=== PATIENT | female | born 2000 | race Caucasian/White ===

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

== ENCOUNTER 2020-12-04 14:26 | Emergency (ER) | payer MEDICARE, OTHER ==
[~2020-12-04] VITALS: Ht 165.1 cm; Wt 54.5 kg
[2020-12-04 14:35] VITALS: TEMP 98.1
[2020-12-04 15:02] LABS: COLLECTION METHOD CLEAN CATCH
[2020-12-04 15:13] LABS: BASO % 0.4 % (0.0-2.0); EOS # 0.3 (0.0-0.7); EOS % 2.4 % (0-4.0); GRAN # 6.8 (1.4-6.5); HEMATOCRIT 41.2 % (35.0-45.0); HEMOGLOBIN 13.2 g/dl (12.0-15.0); LYMPH # 2.5 (1.2-3.4); LYMPH % 23.7 % (20.0-51.0); MEAN CELL VOLUME 91 fl (80.0-95.0); MEAN CORPUSCULAR HEMOGLOBIN 29 pg (26.0-32.0); MEAN CORPUSCULAR HGB CONC 32 g/dl (33.0-37.0); MEAN PLATELET VOLUME 9.8 fl (7.4-10.4); MONO # 0.7 (0.1-0.6); MONO % 7.2 % (1.7-9.3); PLATELET COUNT 289 K/mm3 (130-400); RED BLOOD COUNT 4.54 M/mm3 (4.10-5.30); REDCELL DISTRIBUTION WIDTH-CV 12.6 % (11.5-14.5)
[2020-12-04 15:16] LABS: PH 6 (5-8); SQUAMOUS EPITHELIAL None Seen /hpf; URINE APPEARANCE Clear; URINE BACTERIA None Seen /hpf; URINE BILIRUBIN Negative (NEGATIVE); URINE BLOOD Negative (NEGATIVE); URINE COLOR Yellow; URINE GLUCOSE Negative (NEGATIVE); URINE KETONE Negative (NEGATIVE); URINE LEUKOCYTE ESTERASE Negative (NEGATIVE); URINE NITRATE Negative (NEGATIVE); URINE PROTEIN(semi-quant) Negative (NEGATIVE); URINE RBC None Seen /hpf; URINE UROBILINOGEN Negative (NEGATIVE)
[2020-12-04 15:22] LABS: ALANINE AMINOTRANSFERASE 14 U/L (4-34); ALBUMIN 4.2 gm/dL (3.5-5.0); ALKALINE PHOSPHATASE 54 U/L (50-136); ANION GAP 9 mmol/L (7-16); AST,SGOT 21 U/L (15-37); BILIRUBIN,TOTAL < 0.1 mg/dL (0.0-1.0); BLOOD UREA NITROGEN 16 mg/dL (7-17); CALCIUM 9.1 mg/dL (8.4-10.2); CARBON DIOXIDE 26 mmol/L (22-30); CHLORIDE 103 mmol/L (98-107); CREATININE, serum 0.72 (0.52-1.25); GLUCOSE 82 mg/dL (74-106); POTASSIUM 3.8 mmol/L (3.4-5.0); SODIUM 138 mmol/L (137-145); TOTAL PROTEIN 7.7 gm/dL (6.4-8.2)
[2020-12-04 15:29] LABS: ACETAMINOPHEN < 10 ug/mL (10-30); ALCOHOL(ethanol),MEDICAL < 10 mg/dL; SALICYLATE < 1.0 mg/dL
[2020-12-04 15:37] LABS: TRICYCLIC ANTIDEPRESS URINE NEGATIVE
[2020-12-04 15:52] LABS: TSH w REFLEX 0.964 uIU/mL (0.465-4.680)
[2020-12-04 17:31] VITALS: BP 126/80; PULSE 78
== END 2020-12-04 17:36 | disposition home or self-care (01) ==
LOC: COL.ER 14:26
PROVIDERS: Nurse Practitioner Primary Care
DX: F22 Delusional disorders (principal); Z88.1 Allergy status to other antibiotic agents

== ENCOUNTER → 2021-06-18 | Outpatient (CLI) | payer MEDICARE | LOC: MC.RAD 10:00 | DX: N63.32 Unspecified lump in axillary tail of the left breast (principal) ==

== ENCOUNTER 2022-10-31 18:21 | Outpatient (CLI) | payer MEDICARE ==
[~2022-10-31] VITALS: Ht 165.1 cm; Wt 79.5 kg
--- NOTE | 2022-10-31 18:30 | NUR ---
To unit via wheelchair for assessment of ?SROM, accompanied by family. oriented to room ,monitor, plan of care. ROM+ collected and sent to lab.
[2022-10-31 18:35] VITALS: BP 117/72; PULSE 84; TEMP 97.4
[2022-10-31] MEDS ORDERED: PRENATAL TABLET PO (18:53)
[2022-10-31] MEDS ORDERED: FERRO-TIME325 MG PO (18:54)
[2022-10-31] MEDS ORDERED: HAIRSKINNAILS PO (18:55)
[2022-10-31 19:30] VITALS: PULSE 84
--- NOTE | 2022-10-31 19:45 | NUR ---
ROM + RESULTS NEGATIVE. Pt off monitor. Will finish eating and discharge to home.
--- NOTE | 2022-10-31 20:00 | NUR ---
discharge instructions reviewe with pt and family . Pt denies taking Acyclovir or Valtrex, stating "I've never heard of it" Acyclovir on pt's med list form office. Pt instructed to call office in amand ask for a Medication clarification. Verbalizes understanding. Ambulatory of unit with extended family
== END 2022-10-31 20:00 | disposition home or self-care (01) ==
LOC: LDRO 18:21 → LDR 18:45 → LDRO 20:00
DX: O42.92 Full-term premature rupture of membranes, unspecified as to length of time between rupture and onset of labor (principal); Z3A.37 37 weeks gestation of pregnancy
CPT/HCPCS: OP

== ENCOUNTER 2022-11-16 05:32 | Inpatient (IN) | payer MEDICARE ==
[2022-11-16] VITALS (21 sets, daily range): BP systolic 95–158; BP diastolic 56–86; PULSE 76–121; TEMP 97.6–97.9
[~2022-11-16] VITALS: Ht 165.1 cm; Wt 86.4 kg
[~2022-11-16 05:32] MED LIST changes: +FERRO-TIME325 MG PO; +HAIRSKINNAILS PO; +PRENATAL TABLET PO
--- NOTE | 2022-11-16 05:35 | NUR ---
PT TO UNIT VIA WHEELCHAIR. BREATHING HEAVILY WITH CONTRACTIONS, UNCONTROLLED, MOANING AND CRYING OUT THAT SHE HURTS. STATES CTX STARTED AT APPROXIMATELY 0300, DENIES LOF OR VB. SVE OF -/-3. EFMX2 APPLIED, VS OBTAINED.
--- NOTE | 2022-11-16 06:49 | NUR ---
0619 - Dr. Valencia to bedside. Verbal discussion with pt regarding HSV. Pt states she is having outbreak. Dr. Valencia asks about outbreak starting Oct 10 as noted in prental records, pt states "I don't remember, I sleep a lot". Vaginal exam by Dr. Valencia, per physician, does not see lesions, but informs pt that if outbreak is suspected, will need to be done. Pt verbally agrees. Per Dr. Valencia, cervix unchanged at this time, will monitor pt for another hour and recheck.
--- NOTE | 2022-11-16 07:11 | NUR ---
0705 - Dr. Drummond to bedside. SVE per provider 2-3/bulging bag/bloody show. Discussion at this time with pt and family that will need to be done with possibility of HSV outbreak. Pt verbalizes understanding and verbally agrees.
[2022-11-16] MEDS ORDERED: VALTREX1 GM PO (07:24)
[2022-11-16 08:07] LABS: BASO % 0.2 % (0.0-2.0); EOS # 0.2 K/mm3 (0.0-0.7); GRAN # 15.3 K/mm3 (1.4-6.5); HEMOGLOBIN 12.4 g/dl (12.5-16.0); LYMPH # 2.6 K/mm3 (1.2-3.4); LYMPH % 13.4 % (20.0-51.0); MEAN CELL VOLUME 87 fl (80.0-100.0); MEAN CORPUSCULAR HEMOGLOBIN 29 pg (27-31); MEAN CORPUSCULAR HGB CONC 34 g/dl (33.0-37.0); MEAN PLATELET VOLUME 11.5 fl (7.4-10.4); MONO # 1.3 K/mm3 (0.1-0.6); MONO % 6.8 % (1.7-9.3); PLATELET COUNT 224 K/mm3 (130-400); RED BLOOD COUNT 4.25 M/mm3 (4.10-5.30); REDCELL DISTRIBUTION WIDTH-CV 15.8 % (11.5-14.5)
[2022-11-16 08:17] LABS: TRICYCLIC ANTIDEPRESS URINE NEGATIVE
[2022-11-16 08:23] LABS: ALBUMIN 3.2 gm/dL (3.5-5.0); BILIRUBIN,TOTAL 0.3 mg/dL (0.2-1.2); CALCIUM 9.7 mg/dL (8.4-10.2); CREATININE, serum 0.66 mg/dL (0.57-1.11); POTASSIUM 3.7 mmol/L (3.5-4.5); TOTAL PROTEIN 7.2 gm/dL (6.2-8.1)
--- NOTE | 2022-11-16 11:29 | NUR ---
0720 - IV started in left hand, labs drawn and LR started per protocol. 0745 - Pubic area shaved, chlorihexadine scrub done across incisional site. 08 - Consents discussed and signed. 08 - Pt taken off monitors and taken to OR via bed for .
--- NOTE | 2022-11-16 16:00 | NUR ---
Rivera catheter removed while pt lying in bed, SCDs removed. Pt up to sitting at bedside with assistance of 2. Pt then up to standing with assistance of 1, and ambulates with standby to bathroom. Pt sits on toilet, gown changed, pericare done. New gown, panties and pad placed. Binder placed at this time. Pt then ambulates independently back to bed, tries to sit, then requests binder to be removed. Binder removed, pt sits and repositions self in bed. Pt denies needs at this time.
[2022-11-17] VITALS: BP 125/81; PULSE 94; TEMP 97.8
[2022-11-17 04:15] VITALS: BP 119/76; PULSE 91; TEMP 98.1
[2022-11-17 09:46] VITALS: BP 117/74; PULSE 90; TEMP 97.8
--- NOTE | 2022-11-17 13:45 | NUR ---
Pt up to bathroom, voided, then in to shower. Bandage removed with assistance, incision edges well approximated, no swelling/bruising noted, slight oozing from center. Following shower, pt assisted into new panties, pad, and gown. Pt then ambulated down de la cruz while pushing in crib. Pt tolerated well, no needs at this time.
--- NOTE | 2022-11-17 15:45 | NUR ---
director pharmacy services to pt room, pt friend and father at bedside.
[2022-11-17 16:53] VITALS: BP 103/60; PULSE 78
--- NOTE | 2022-11-17 19:00 | NUR ---
PT UP TO BATHROOM WITH STAND-BY ASSIST. WHILE SITTING ON THE TOILLET, PT BEGAN LOOKING OVER HER SHOULDER. THIS NURSE ASKED IF PATIENT WAS DOING OK. 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 THIS ASKED IF THERE WAS ANYTHING I COULD DO TO ASSIST. PT STATES SHE IS OK. PERICARE PERFORMED AND PT ASSISTED BACK TO BED.
[2022-11-17 19:41] VITALS: BP 110/62; PULSE 77; TEMP 98
[2022-11-18 08:29] VITALS: BP 106/65; PULSE 76; TEMP 97.7
--- NOTE | 2022-11-18 09:23 | NUR ---
Initial visit; Mom and Grandma thanked Tax Consultant for offering prayer and Congratulations for the of their baby boy. Tax Consultant will keep mother and baby in her prayers.
--- NOTE | 2022-11-18 09:36 | NUR ---
0845 - KPad provided to pt per her request for heating pad. 0933 - Finance notified of pt request for visit.
[2022-11-18 16:36] VITALS: BP 101/58; PULSE 84; TEMP 97.8
[2022-11-18 19:30] VITALS: BP 113/69; PULSE 79; TEMP 97.9
--- NOTE | 2022-11-19 05:50 | NUR ---
Throughout shift, patient did not ask this nurse anything about baby or baby cares. Was seen pumping around 1900 and was in the nursery briefly in the 4 oclock hour. Pt slept comfortably through majority of shift. This nurse concerned about patients mental health and ability/desire to care for baby once discharged.
[2022-11-19 08:31] VITALS: BP 113/65; PULSE 90; TEMP 97.8
--- NOTE | 2022-11-19 09:53 | NUR ---
0830 MOTHER RESTING IN BED WITH INFANT AT BREAST. NURSERY NURSEALVARO ASSISTING FEEDING. MOTHER IN A GOOD MOOD ANSWERING QUESTIONS ASKED OF HER. STATES A LITTLE PAIN AND WOULD LIKE TO TAKE A OXYCODONE NOW SO HER "PAIN DOESN'T GET OUT OF CONTROL." SCHEDULED MOTRIN DUE AT 1130. MOTHER STATES BLEEDING HAS SLOWED DOWN. MOTHER EDUCATED ON HOW TO CARE FOR UMBILICAL CORD AND EXPECTATIONS TO SEE FROM NOW UNTIL IT HEALS AND FALLS OFF. MOTHER VERBALLY UNDERSTANDS HOW TO CLEAN UMBILICAL CORD. XOCHILT PADS, MESH UNDERWEAR, CLEAN TOWELS SUPPLIED TO MOTHERS BATHROOM AT THIS TIME. CALL LIGHT IN PLACE. MOTHER IN BED HOLDING ON CHEST. MOTHERHUSSEIN AT BEDSIDE.
--- NOTE | 2022-11-19 10:03 | NUR ---
0730 Patients mother comes to nurses station stating the patient needs help getting baby to breast. This nurse to room to help with . Patient is crying because baby is crying. states "i cant get him to feed". talk with patient that this is normal for baby to get upset like this when sometimes. This nurse helps with attempting to latch baby at this time. baby very fussy and refusing to latch. Patient very upset and tearful. Patient asks to just feed baby a bottle at this time. Danitza Rn to room for a blood sugar check on baby.
--- NOTE | 2022-11-19 10:36 | NUR ---
AT about 0950 pt uses call light and asks for a bottle for baby. This LC goes to pt room to assess as baby just fed about 1.5 hours ago. When LC enters room baby is content, LC asks pt to describe what behaviour baby was showing that made her think baby was hungry. She states his mouth was rooting, that she gave him the pacifier for a little bit but she thought he might be hungry. LC assists with repositioning baby to a burping position, pt pats baby on the back appropriatly. No feeding cues observed. Pt gets teary and lip quivers as LC repositions baby. LC asks if pt okay, she states it is scary not knowing what the baby needs. Reviewed reasons why babies get fussy, including hunger, discomfort, gas, dirty diapers. LC discusses getting parenting books to help her understand newborns, such as What to Expect the First Year. PT goes on to share about some of her history with medications for depression and schizophrenia, that she didn't feel good on them and that she felt she was doing okay at this time. She shares she has not heard strong voices since the baby was born, and what she has heard she was able to talk over them so they did not bother her. LC asks about her support outside the hospital, she states she will stay with her mother and father for awhile, while her own place is being repaired, that it has a broken pipe and there was a spot on the floor that was soft and she was afraid she would fall through and a leak in the roof. She states her brother and friend Brady were going to work on it. asks about professional support for her schizophrenia, she has had a few counselors but does not seem to have a current one. encourages pt to get established with a professional, especially since PP is a very emotional time. Pt seems to feel better, asks for ice cream as LC leave room.
--- NOTE | 2022-11-19 13:03 | NUR ---
1100 THIS RN GOES INTO PATIENT ROOM TO GIVE SCHEDULED MOTRIN. NURSERY NURSE, ALVARO, AT BEDSIDE CHECKING INFANT BLOOD SUGAR BEFORE TO FEED. INFANT IS CRYING, ACTING HUNGRY. MOTHER PLANS TO START ON THE LEFT SIDE. MOTHER AND NURSERY NURSE ATTEMPTING TO LATCH TO LEFT BREAST IN CROSS CRADLE. INFANT CRYING VIGOROUSLY, MOTHER APPEARS TO GET FRUSTRATED. THIS RN ASKS IF SHE MAY HELP GET LATCHED ON. MOTHER AGREES. THIS RN ENCOURAGES MOTHER TO KEEP TRYING AND THAT IT TAKES A LITTLE WORK SOMETIMES. REASSURES MOTHER THAT SHE IS DOING GREAT AND IT IS A NEW SKILL FOR BOTH HER AND INFANT. PILLOWS ADJUSTED. INFANT PLACED IN CORRECT POSITION. THIS RN SHOWS MOTHER HOW TO USE LEFT HAND IN C SHAPE TO HOLD LEFT BREAST. RIGHT HAND TO CRADLE AND SUPPORT HEAD AND SHOULDERS. MOTHER IS ABLE TO EXPRESS LARGE DROP OF COLOSTRUM. THIS RN ASSISTS WITH LATCH TO LEFT SIDE AND VERIFIES LATCH, SUCK/SWALLOW, BODY POSITION. ALL OF THIS POINTED OUT TO MOTHER AND REITERATED WHAT TO WATCH FOR FOR A GOOD LATCH. INFANT NURSES WELL FOR 10 MINUTES. THIS RN SHOWS MOTHER HOW TO STIMULATE BABY GENTLY WHEN FALLS ASLEEP TO ENCOURAGE IT TO CONTINUE NURSING. CONTINUED FOR A FEW MORE SUCKS. THIS RN ENCOURAGED MOTHER TO ATTEMPT BURPING BEFORE SWITCHING SIDES. MOTHER APPEARED NERVOUS TO PICK INFANT UP AND MOVE HIM. THIS RN DIRECTED MOTHER TO SUPPORT HEAD AND SHOULDERS WITH ONE HAND AND OTHER HAND TO SUPPORT BOTTOM, LIFT HIM UP ON TO CHEST WITH HEAD RESTING ON SHOULDER. MOTHER POSITIONED INFANT AND WAS SHOWN HOW TO BURP , BY PATTING HIS BACK. BURPED QUICKLY AND THEN MOTHER ATTEMPTED TO POSITION HIM ON RIGHT. INFANT APPEARS SLEEPY AND DOES NOT NURSE ON RIGHT. GRANDMOTHER (HUSSEIN) ENCOURAGES MOTHER TO PUMP RIGHT SIDE SO THERE WILL BE MILK INCASE "ME MISBEHAVES WHEN EATING" OR FOR NURSE PRACTITIONER PHYSICIANS ASSISTANT TO USE IF MOTHER IS SLEEPING. MOTHER PUMPS APPROXIMATELY 50 MLS FROM RIGHT SIDE. DIAPER CHANGED BY THIS RN. INFANT SWADDLED AND PLACED IN CRIB. MOTHER THANKS THIS RN FOR HELP.
--- NOTE | 2022-11-19 13:27 | NUR ---
1325 PT RESTING IN BED. PT ASKS FOR OXYCODONE. RATES PAIN 5/10 AROUND LOWER ABDOMEN AND INCISION.
--- NOTE | 2022-11-19 15:18 | NUR ---
Documentation from SW interaction located on infants chart. Mothers mental health addressed at this time.
[2022-11-19 16:25] VITALS: BP 117/66; PULSE 84; TEMP 98
--- NOTE | 2022-11-19 16:26 | NUR ---
1620 VSS. PT RESTING IN BED. MICHELLE RODRÍGUEZ AND MOTHERHUSSEIN AT BEDSIDE. BEING HELD BY HUSSEIN.
[2022-11-19 21:00] VITALS: BP 114/54; PULSE 88; TEMP 98.1
[2022-11-20 07:54] VITALS: BP 110/69; PULSE 69; TEMP 97.7
[2022-11-20] MEDS ORDERED: ROXICODONE 55 MG/TAB PO (08:13)
[2022-11-20] MEDS ORDERED: MOTRIN 800800 MG/TAB PO (08:13)
== END 2022-11-20 11:50 | disposition home or self-care (01) | DRG 788 ==
LOC: LDRO 05:32 → LDR 06:42 → OB 06:42
PROVIDERS: Obstetrics & Gynecology; ADMIT Obstetrics & Gynecology
PROC: 10D00Z1 Extraction of Products of Conception, Low, Open Approach (ICD-10-PCS; principal; 2022-11-16)
DX: O98.32 Other infections with a predominantly sexual mode of transmission complicating childbirth (principal); A60.09 Herpesviral infection of other urogenital tract; O75.89 Other specified complications of labor and delivery; O77.0 Labor and delivery complicated by meconium in amniotic fluid; O99.344 Other mental disorders complicating childbirth; F20.9 Schizophrenia, unspecified; F90.9 Attention-deficit hyperactivity disorder, unspecified type; O99.52 Diseases of the respiratory system complicating childbirth; J45.909 Unspecified asthma, uncomplicated; O99.013 Anemia complicating pregnancy, third trimester; D64.9 Anemia, unspecified; O99.333 Smoking (tobacco) complicating pregnancy, third trimester; O69.81X0 Labor and delivery complicated by cord around neck, without compression, not applicable or unspecified; F17.210 Nicotine dependence, cigarettes, uncomplicated; Z3A.38 38 weeks gestation of pregnancy; Z37.0 Single live birth
CPT/HCPCS: J1100; J1170; J2250; J7120

== ENCOUNTER 2023-01-24 10:38 | Emergency (ER) | payer MEDICARE ==
[~2023-01-24] VITALS: Ht 165.1 cm; Wt 75.0 kg
[~2023-01-24 10:38] MED LIST changes: +MOTRIN 800800 MG/TAB PO; +ROXICODONE 55 MG/TAB PO; +VALTREX1 GM PO
[2023-01-24 10:39] VITALS: TEMP 98.6
[2023-01-24 11:42] VITALS: BP 112/73; PULSE 71
== END 2023-01-24 11:42 | disposition home or self-care (01) ==
LOC: COL.ER 10:38
DX: R56.9 Unspecified convulsions (principal); F17.290 Nicotine dependence, other tobacco product, uncomplicated

== ENCOUNTER 2023-10-17 23:39 | Emergency (ER) | payer MEDICARE ==
[~2023-10-17] VITALS: Ht 165.1 cm; Wt 65.6 kg
[2023-10-17 23:46] VITALS: TEMP 98
[2023-10-18 00:05] LABS: COLLECTION METHOD CLEAN CATCH
[2023-10-18 00:15] LABS: URINE APPEARANCE CLEAR (CLEAR/HAZY); URINE BLOOD NEGATIVE (NEGATIVE); URINE COLOR Dark Yellow (YELLOW); URINE GLUCOSE NEGATIVE (NEGATIVE); URINE KETONE TRACE (NEGATIVE); URINE NITRATE POSITIVE (NEGATIVE); URINE PROTEIN(semi-quant) 1+ (NEGATIVE)
[2023-10-18 00:21] LABS: BASO # 0.1 K/mm3 (0.0-0.2); BASO % 0.4 % (0.0-2.0); EOS # 0.3 K/mm3 (0.0-0.7); GRAN % 63.9 % (42.2-75.2); HEMOGLOBIN 12.7 g/dl (12.5-16.0); LYMPH # 3.2 K/mm3 (1.2-3.4); LYMPH % 25.9 % (20.0-51.0); MEAN CELL VOLUME 82 fl (80.0-100.0); MEAN CORPUSCULAR HEMOGLOBIN 29 pg (27-31); MEAN CORPUSCULAR HGB CONC 35 g/dl (33.0-37.0); MEAN PLATELET VOLUME 9.8 fl (7.4-10.4); MONO # 0.9 K/mm3 (0.1-0.6); MONO % 7.4 % (1.7-9.3); PLATELET COUNT 332 K/mm3 (130-400); RED BLOOD COUNT 4.38 M/mm3 (4.10-5.30)
[2023-10-18 00:30] LABS: HEMATOCRIT 36.1 % (37.0-47.0)
[2023-10-18 00:34] LABS: CALCIUM 9.3 mg/dL (8.4-10.2); CREATININE, serum 0.86 mg/dL (0.57-1.11); POTASSIUM 3.7 mmol/L (3.5-4.5)
[2023-10-18] MEDS ORDERED: AMOXICILLIN 50500 MG PO (01:41)
[2023-10-18] MEDS ORDERED: DOXYCYCLINE 10100 MG PO (01:41)
[2023-10-18] MEDS ORDERED: Doxycycline Monohydrate 100 MG CAP PO ONE (01:45)
[2023-10-18] MEDS ORDERED: cefTRIAXone 500 MG,Lidocaine PF 1% 1 ML IM ONE (01:45)
[2023-10-18 02:20] VITALS: BP 108/83; PULSE 109
== END 2023-10-18 02:20 | disposition home or self-care (01) ==
LOC: COL.ER 23:39
PROVIDERS: Internal Medicine
DX: N89.8 Other specified noninflammatory disorders of vagina (principal); N30.00 Acute cystitis without hematuria

== ENCOUNTER 2024-03-11 03:13 | Emergency (ER) | payer MEDICARE ==
[~2024-03-11] VITALS: Ht 165.1 cm; Wt 58.2 kg
[~2024-03-11 03:13] MED LIST changes: +AMOXICILLIN 50500 MG PO; +DOXYCYCLINE 10100 MG PO
[2024-03-11 03:16] VITALS: BP 123/86; TEMP 97.8
[2024-03-11 03:25] LABS: COLLECTION METHOD CLEAN CATCH
[2024-03-11 03:31] LABS: URINE APPEARANCE CLEAR (CLEAR/HAZY); URINE BLOOD 1+ (NEGATIVE); URINE COLOR YELLOW (YELLOW); URINE GLUCOSE NEGATIVE (NEGATIVE); URINE KETONE NEGATIVE (NEGATIVE); URINE NITRATE NEGATIVE (NEGATIVE); URINE PROTEIN(semi-quant) TRACE (NEGATIVE); URINE UROBILINOGEN 0.2 E.U/dL (0.2-1.0)
[2024-03-11] MEDS ORDERED: Nitrofurantoin (Mono/Macro) 100 MG CAP PO ONE (03:45)
[2024-03-11] MEDS ORDERED: MACROBID 1100 MG/CAP PO (03:54)
[2024-03-11 04:02] VITALS: PULSE 67
== END 2024-03-11 04:02 | disposition home or self-care (01) ==
LOC: COL.ER 03:13
PROVIDERS: Emergency Medicine
DX: N39.0 Urinary tract infection, site not specified (principal); Z88.1 Allergy status to other antibiotic agents

== ENCOUNTER → 2024-03-15 | Outpatient (CLI) | payer MEDICARE, MEDICAID ==
[~2024-03-15] MED LIST changes: +Gadoterate 15 ML VIAL IV ONE; +MACROBID 1100 MG/CAP PO
== END ==
LOC: COL.RAD 07:10
DX: R56.9 Unspecified convulsions (principal)
CPT/HCPCS: A9575